=== PATIENT | female | born 1995 | race Caucasian/White ===

== ENCOUNTER 2016-07-09 22:02 | Emergency (ER) | payer OTHER ==
[2016-07-09] MEDS ORDERED: Ketorolac INJ* 30 MG/ML 1 ML VIAL IV ONE (22:13)
--- NOTE | 2016-07-09 22:26 | ED ---
Upper Extremity Pain - HPI Summary HPI Summary: Patient presents with right shoulder pain and deformity after blocking a kick in [place]. She had a similar episode approximately 2 weeks ago when it felt like the shoulder dislocated but it "popped back in" and was sore for a few days afterwards, so she didn't think much of it. Tonight she has severe pain and can not move the shoulder. She is right handed. She denies N/T and is able to move the elbow, wrist and hand. - History of Current Complaint Chief Complaint: EDShoulderClaWinsome Stated Complaint: RT SHOULDER INJURY Time Seen by Provider: 07/09/16 22:03 Hx Obtained From: Patient Hx Last Menstrual Period: 2 wks ago Mechanism Of Injury: Direct Blow Onset/Duration: Started Minutes Ago Timing: Constant Severity Initially: Severe Severity Currently: Severe Pain Location: Shoulder - right Character: Sharp, Aching, Spasmodic Aggravating Factor(s): Movement Alleviating Factor(s): Nothing Associated Signs & Symptoms: Positive: Negative Related History: Dominant Hand Right - Allergies/Home Medications Allergies/Adverse Reactions: Allergies Allergy/AdvReac Type Severity Reaction Status Date / Time No Known Allergies Allergy Verified 06/26/15 15:20 PMH/Surg Hx/FS Hx/Imm Hx Previously Healthy: Yes - Surgical History Surgery Procedure, Year, and Place: Left eyelid 2014 - Family History Known Family History: Positive: None - Social History Occupation: Student Lives: Alone Alcohol Use: Weekly Substance Use Type: Reports: None Smoking Status (MU): Never Smoked Tobacco Review of Systems Positive: Myalgia, Decreased ROM - right shoulder Negative: Bruising Negative: Weakness, Paresthesia, Numbness All Other Systems Reviewed And Are Negative: Yes Physical Exam Triage Information Reviewed: Yes Vital Signs Reviewed: Yes Appearance: Positive: Well-Appearing, Well-Nourished, Pain Distress Skin: Positive: Warm, Skin Color Reflects Adequate Perfusion, Dry, Soft Head/Face: Positive: Normal Head/Face Inspection Eyes: Positive: EOMI, ALEKSANDR, Conjunctiva Clear ENT: Positive: Hearing grossly normal Respiratory/Lung Sounds: Positive: Breath Sounds Present Cardiovascular: Positive: RRR Musculoskeletal: Positive: Limited @ - Any movement is limited by pain, Pain @ - TTP globally in right shoulder Neurological: Positive: Sensory/Motor Intact, Alert, Oriented to Person Place, Time, NV Bundle Intact Distally Psychiatric: Positive: Affect/Mood Appropriate AVPU Assessment: Alert Diagnostics - Laboratory Lab Statement: Any lab studies that have been ordered have been reviewed, and results considered in the medical decision making process. - Radiology No standard instances Xray Interpretation: Positive (See Comments) Radiology Interpretation Completed By: Radiologist - right anterior shoulder dislocation post-reduction Xray Interpretation: Positive (See Comments) Radiology Interpretation Completed By: Radiologist - Reduced right shoulder with appropriate alignment of the glenohumeral joint Re-Evaluation - Re-Evaluation First Eval Re-Evaluation Time: 22:55 Change: Improved Comment: reduction of shoulder reduced pain Course/Dx - Diagnoses Differential Diagnosis/HQI/PQRI: Positive: Arthritis, Bursitis, Contusion, Fracture (Closed), Hematoma, Strain, Sprain Provider Diagnoses: Dislocation of shoulder, right, closed Discharge - Discharge Plan Condition: Stable Disposition: HOME Prescriptions: oxyCODONE/Acetamin 5/325 MG* [Percocet 5/325 TAB*] 1 tab PO Q4H PRN #18 tab MDD 6 PRN Reason: Pain Patient Education Materials: Shoulder Dislocation (ED) Forms: *School Release Referrals: [facility]ikel [facility]arez MD [Medical Doctor[facility] - Additional Instructions: Wear your immobilizer at all times until instructed otherwise by the orthopedic surgeon. You can remove your immobilizer to shower, but do not move your arm away from your body or rotate your shoulder. It is okay to let your elbow extend , and move your wrist and hand. Begin using ibuprofen 600mg three times daily with meals on 07/11/16. Use percocet for pain management as needed. Apply ice to your shoulder several times daily for 20 minutes each time, with protection for your skin. You may feel more stiffness after ice, but this is normal. Call Dr. Juarez's office at [phone] tomorrow for an appointment at his discretion. Return to the emergency department if symptoms worsen. Contact [facility] for information regarding assistance with school work, such as a scribe.
[2016-07-09] MEDS ORDERED: Morphine INJ* 10 MG/ML 1 ML CARPUJECT IV ONE (22:40)
[2016-07-09] MEDS ORDERED: Morphine INJ* 10 MG/ML 1 ML CARPUJECT ONE (22:42)
--- NOTE | 2016-07-09 22:57 | RAD ---
Indication: Right shoulder injury. 2 views of the right shoulder demonstrates an anterior inferior dislocation of the humeral head. IMPRESSION: Anterior inferior dislocation right humeral head.
[2016-07-09] MEDS ORDERED: oxyCODONE/Acetamin 5/325 MG* TAB PO ONE (23:18)
[2016-07-09 23:35] VITALS: BP 138/94
--- NOTE | 2016-07-10 07:40 | RAD ---
INDICATION: Right shoulder dislocation status post external reduction. TECHNIQUE: 2 views of the right shoulder were obtained. FINDINGS: The bones are normal alignment. There is been relocation of the humeral head within the glenoid fossa. There is slight flattening of the superior lateral aspect of the humeral head consistent with a Hill-Sachs fracture. No other fractures are seen. IMPRESSION: 1. STATUS POST EXTERNAL REDUCTION. THE BONES ARE IN NORMAL ALIGNMENT. 2. HILL-SACHS FRACTURE.
== END 2016-07-09 23:33 | disposition home or self-care (01) ==
LOC: ED 22:02
DX: S43.004A Unspecified dislocation of right shoulder joint, initial encounter (principal); M25.511 Pain in right shoulder; W50.0XXA Accidental hit or strike by another person, initial encounter; Y93.72 Activity, wrestling; Y92.9 Unspecified place or not applicable
CPT/HCPCS: 96374; 96375; 99283; A9270-GY; J1885; J2270

== ENCOUNTER 2016-12-21 18:30 | Emergency (ER) | payer OTHER ==
[2016-12-21 18:38] VITALS: BP 113/72
--- NOTE | 2016-12-21 20:04 | RAD ---
Indication: Trauma, neck injury. 5 views of the cervical spine demonstrates straightening of the normal lordosis. Spinal canal appears to be intact. There is no fracture noted. IMPRESSION: Spinal canal appears to be intact. No fracture of the cervical spine is noted. The intervertebral foramen appear patent.
[2016-12-21] MEDS ORDERED: Cyclobenzaprine TAB* 10 MG PO ONE (20:34)
--- NOTE | 2016-12-21 20:44 | UC ---
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 WAS HIT IN SIDE OF HEAD. NO LOC. NO N/V. TODAY HAVING SOME NECK STIFFNESS AND PAIN IN SKIN, BACK OF SCALP. NO CHAN. NO N/ V. NO CONFUSION. NO BRUISING. NO DISCHARGE FROM NOSE OR EARS - History Of Current Complaint Chief Complaint: UCHeadInjury Stated Complaint: HEAD INJURY Time Seen by Provider: 12/21/16 18:44 Hx Obtained From: Patient Hx Last Menstrual Period: 12/13/16 Onset/Duration: Sudden Onset, Lasting Hours, Still Present Severity Currently: Moderate Severity Initially: Mild Character: Dull Aggravating Factor(s): Nothing Alleviating Factor(s): Nothing Associated Signs And Symptoms: Positive: Neck Pain - STIFFNESS. Negative: LOC ( Time In Secs./Mins/Hrs), LOC Duration Unknown, Confusion, Memory Loss, Seizure, Epistaxis, Dental Malocclusion, Nausea, Vomiting - Risk Factors SDH Risk Factor: Negative - Allergies/Home Medications Allergies/Adverse Reactions: Allergies Allergy/AdvReac Type Severity Reaction Status Date / Time No Known Allergies Allergy Verified 06/26/15 15:20 Home Medications: Home Medications Naproxen Sodium [Naproxen Sodium 500 MG TAB] 500 mg PO 12/21/16 [History] PMH/Surg Hx/FS Hx/Imm Hx Previously Healthy: Yes - Surgical History Surgical History: Yes Surgery Procedure, Year, and Place: Left eyelid 2014 - Family History Known Family History: Positive: None - Social History Occupation: Student Lives: With Family Alcohol Use: Weekly Substance Use Type: Marijuana Substance Use Comment - Amount & Last Used: once every 4 months Smoking Status (MU): Never Smoked Tobacco Review of Systems Constitutional: Negative Skin: Other - TENDERNESS BACK OF SCALP Eyes: Negative ENT: Negative Respiratory: Negative Cardiovascular: Negative Gastrointestinal: Negative Genitourinary: Negative Motor: Negative Neurovascular: Negative Musculoskeletal: Arthralgia, Myalgia Neurological: Negative Psychological: Negative All Other Systems Reviewed And Are Negative: Yes Physical Exam Triage Information Reviewed: Yes Appearance: Well-Appearing, No Pain Distress, Well-Nourished Vital Signs: Initial Vital Signs Temp 98.3 F 12/21/16 18:33 Pulse 62 12/21/16 18:33 Resp 18 12/21/16 18:33 BP 113/72 12/21/16 18:33 Pulse Ox 100 12/21/16 18:33 Vital Signs Reviewed: Yes Eye Exam: Normal ENT Exam: Normal ENT: Positive: Normal ENT inspection, Hearing grossly normal, Pharynx normal, TMs normal Dental Exam: Normal Neck exam: Normal Neck: Positive: Supple, Nontender Respiratory Exam: Normal Respiratory: Positive: Chest non-tender, Lungs clear, Normal breath sounds, No respiratory distress, No accessory muscle use Cardiovascular Exam: Normal Cardiovascular: Positive: RRR, No Murmur, Pulses Normal Abdominal Exam: Normal Abdomen Description: Positive: Nontender, No Organomegaly Musculoskeletal Exam: Normal Musculoskeletal: Positive: Strength Intact, ROM Intact Neurological Exam: Normal Psychological Exam: Normal Psychological: Positive: Normal Response To Family Skin Exam: Normal Head Injury Course/Dx - Differential Dx/Diagnosis Differential Diagnosis/HQI/PQRI: Cervical Sprain, Concussion With LOC, Concussion Without LOC, Contusion Provider Diagnoses: CONCUSSION; CERVICAL STRAIN Discharge - Discharge Plan Condition: Stable Disposition: HOME Prescriptions: Cyclobenzaprine TAB* [Flexeril 10 MG TAB*] 10 mg PO TID PRN #9 tab PRN Reason: Spasms Patient Education Materials: Concussion (ED), Cervical Sprain (ED), Post Concussion Syndrome (ED) Forms: *School Release Referrals: [facility] [Outside] No Primary Care Phys,NOPCP [Primary Care Provider] -
== END 2016-12-21 20:43 | disposition home or self-care (01) ==
LOC: UCEAST 18:30
DX: S16.1XXA Strain of muscle, fascia and tendon at neck level, initial encounter (principal); S06.0X0A Concussion without loss of consciousness, initial encounter; W50.0XXA Accidental hit or strike by another person, initial encounter; Y93.75 Activity, martial arts; Y92.9 Unspecified place or not applicable
CPT/HCPCS: 72050; 99212; A9270-GY; G0463

== ENCOUNTER 2017-02-14 06:29 | Day surgery (SDC) | payer OTHER ==
[~2017-02-14 06:29] MED LIST: Buffered Lidocaine 0.9% SYRIN* 5 ML/SYR SYRINGE INTRADERM ONE; Dexamethasone IV* 4 MG/ML 1 ML (4 MG) IV SLOW PU ONE; Famotidine IV* 10 MG/ML 2 ML (20 mg) IV ONE
[2017-02-14] MEDS ORDERED: Dexamethasone IV* 4 MG/ML 1 ML (4 MG) ONE (06:41)
[2017-02-14] MEDS ORDERED: Famotidine IV* 10 MG/ML 2 ML (20 mg) ONE (06:41)
[2017-02-14] MEDS ORDERED: ceFAZolin 2 GM PREMIX (*) 2 GM/50 ML BAG IVPB ONE (06:41)
[2017-02-14] MEDS ORDERED: Buffered Lidocaine 0.9% SYRIN* 5 ML/SYR SYRINGE ONE (06:42)
[2017-02-14] MEDS ORDERED: fentaNYL* 50 MCG/ML 2 ML VIAL (100 MCG VIAL) ONE ×2 (07:15→08:23)
[2017-02-14] MEDS ORDERED: Atracurium* 10 MG/ML 10 ML VIAL ONE (07:15)
[2017-02-14] MEDS ORDERED: Midazolam* 1 MG/ML 5 ML VIAL (5 MG) ONE (07:15)
[2017-02-14] MEDS ORDERED: ROPIVACAINE 5 MG/ML 30 ML BTL (0.5%) ONE (07:16)
[2017-02-14] MEDS ORDERED: DiMENhydriNATE IV* 50 MG/ML VIAL IV PUSH PRN (08:36)
[2017-02-14] MEDS ORDERED: HYDROmorphone INJ* 2 MG/ML CARPUJECT SYRINGE IV PRN (08:36)
[2017-02-14] MEDS ORDERED: fentaNYL* 50 MCG/ML 2 ML VIAL (100 MCG VIAL) IV PRN (08:36)
[2017-02-14] MEDS ORDERED: oxyCODONE/Acetamin 5/325 MG* TAB PO PRN (08:36)
[2017-02-14] MEDS ORDERED: Scopolamine 1.5 mg* PATCH TRANSDERM PRN (08:36)
[2017-02-14] MEDS ORDERED: Ondansetron INJ* 2 MG/ML VIAL IV PRN (08:36)
[2017-02-14] MEDS ORDERED: Ondansetron INJ* 2 MG/ML VIAL ONE (09:10)
[2017-02-14] MEDS ORDERED: Propofol* 10 MG/ML 20 ML BTL IV PUSH ONE (09:10)
[2017-02-14] MEDS ORDERED: Ketorolac INJ* 30 MG/ML 1 ML VIAL ONE (09:10)
[2017-02-14] MEDS ORDERED: Glycopyrrolate IV* 0.2 MG/ML 1 ML VIAL ONE (09:10)
[2017-02-14 11:21] VITALS: BP 115/72
--- NOTE | 2017-02-14 14:31 | RAD ---
CPT II Codes: 6045F Indication: Right ankle fracture. Traumatic Fluoroscopic services provided for referring physician. 21.9 seconds of fluoroscopy time was used. 10 spot images demonstrates internal fixation of the fibular fracture. IMPRESSION: Fibular fracture internal fixation.
--- NOTE | 2017-02-15 02:26 | OP ---
OPERATIVE REPORT: DATE OF OPERATION: 02/14/17 - [facility] DATE OF : 89 SURGEON: Gamaliel Mcgrath MD HOISTING ENGINEER: BESSY Donis ANESTHESIOLOGIST: Dr. Walton. ANESTHESIA: General endotracheal anesthesia with regional nerve block. PRE-OP DIAGNOSIS: Right ankle fracture. POST-OP DIAGNOSIS: Right ankle fracture. OPERATIVE PROCEDURE: 1. Open reduction and internal fixation of right ankle fracture. 2. Stress views performed by surgeon utilizing fluoroscopy under anesthesia. IMPLANTS: Synthes small fragment one-third semitubular plate, 8 holes, and three 0.5 mm cortical screws. TOURNIQUET TIME: One hour at 250 mmHg. SPECIMENS: None. ESTIMATED BLOOD LOSS: Minimal. COMPLICATIONS: None. STATUS: Stable from the operating room to the recovery room and then home. 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 Both operative and nonoperative treatment alternatives were reviewed with both her and her mother on multiple occasions. Further, the nature and risks of surgery were reviewed in careful detail in the office as well as in the preoperative holding area. Our discussion regarding the risks of the surgery included but were not limited to infection, wound problems, nerve injury, neuroma, RSD, persistent symptoms, nonunion, malunion, failure of hardware, and even the remote chance of a catastrophic complication including a loss of limb. DESCRIPTION OF PROCEDURE: The patient was seen in the preoperative holding unit and informed consent was obtained. The appropriate extremity was marked. The patient was brought to the operating room and carefully positioned on the operating room table. Anesthesia was induced. All bony prominences were padded with great care. A chlorhexidine based pre-scrub was performed followed by a standard ChloraPrep, prepped and draped in sterile fashion. A surgical safety pause was conducted, in which we confirmed the appropriate patient, extremity, planned procedure, availability of equipment, indication and administration of prophylactic antibiotics and DVT prophylaxis in the form of compression boot on the nonsurgical extremity. A well-padded thigh tourniquet had been placed prior to prepping and draping. We began with an Esmarch exsanguination of limb and inflated the tourniquet. We then utilized a laterally based incision overlying the distal fibula. Great care was taken to protect the superficial peroneal nerve, which was not visualized within the field of view. We dissected down to the soft tissue layers to expose the distal fibula. We then exposed the fracture and fracture hematoma was removed. We gained a reduction using a point of reduction clamp and lobster claw clamp. A lag screw was placed from the anterior to posterior with excellent excision and compression of the fracture. I then placed an 8 hole one- third semitubular plate laterally and confirmed the reduction and position of the plate fluoroscopically. Screws were placed to hold the plate to the bone. Reduction clamps were then removed and we again confirmed fluoroscopically the appropriate position of the plate, screw length and reduction. At this point, I performed a stress fluoroscopic examination. I utilized a cotton test as well as an external rotation stress test to evaluate the distal tib-fib syndesmosis. There was no instability appreciated radiographically to syndesmosis. The syndesmosis was then directly visualized and stressed and there was no abnormal motion. The decision was made to not place syndesmotic fixation. Final fluoroscopic images were then obtained, confirming a good reduction of the fracture and appropriate placement of the hardware. At this point, the wound was copiously irrigated and closed in layers meticulously using 3-0 Monocryl and 3-0 nylon. A sterile dressing was then applied, followed by a splint with the ankle in neutral position. The tourniquet was deflated. The patient was awakened from anesthesia and transferred to the recovery room in stable condition. There were no complications. All needle and sponge counts were correct at the end of the case. ATTESTATION: I attest that I was present, scrubbed, and performed the entire procedure myself. POSTOPERATIVE PLAN: Gladys will remain in the postoperative splint, nonweightbearing for an anticipated duration of 2 weeks. At that time, we will likely remove the sutures and switch her back into the Aircast boot, but she will remain nonweightbearing for a total of 6 weeks postoperatively. When in boot, she will be able to start gentle range of motion of the ankle assuming her incisions have healed well.she will take aspirin 325 mg po daily for DVT prophylaxis. [id number]/[facility] #: [id number] [facility]
[2017-02-17] MEDS ORDERED: Scopolomine PATCH Remove* 1 NOTE MISC PATCH OFF ONE (08:38)
== END 2017-02-14 11:36 | disposition home or self-care (01) ==
LOC: OR 06:29
PROVIDERS: ATTEND Orthopaedic Surgery
DX: S82.61XA Displaced fracture of lateral malleolus of right fibula, initial encounter for closed fracture (principal); F41.8 Other specified anxiety disorders; W01.0XXA Fall on same level from slipping, tripping and stumbling without subsequent striking against object, initial encounter; Y92.480 Sidewalk as the place of occurrence of the external cause
CPT/HCPCS: 76000; C1713; C1776; J0690; J1100; J1885; J2250; J2405; J2704; J2795; J3010